=== PATIENT | female | born 1975 | race Caucasian/White ===

== ENCOUNTER 2020-04-26 17:21 | Outpatient (CLI) | payer OTHER, SELFPAY | END 2020-04-26 17:22 | disposition home or self-care (01) | LOC: ANHCOVIDVC 17:21 | PROVIDERS: PCP Emergency Medicine | DX: Z23 Encounter for immunization (principal) | CPT/HCPCS: 0001A; 91300 ==

== ENCOUNTER 2020-05-17 17:23 | Outpatient (CLI) | payer OTHER, SELFPAY | END 2020-05-17 17:24 | disposition home or self-care (01) | LOC: ANHCOVIDVC 17:23 | PROVIDERS: PCP Emergency Medicine | DX: Z23 Encounter for immunization (principal) | CPT/HCPCS: 0002A; 91300 ==

== ENCOUNTER 2020-09-25 11:00 | Outpatient (CLI) | payer OTHER, SELFPAY | END 2020-09-25 11:01 | disposition home or self-care (01) | LOC: ANHAUDIO 11:01 | PROVIDERS: PCP Emergency Medicine; Visit Provider Otolaryngology | DX: H91.93 Unspecified hearing loss, bilateral (principal) | CPT/HCPCS: 92552; 92556; 92567 ==

== ENCOUNTER 2020-10-24 16:15 | Emergency (ER) | payer OTHER, SELFPAY ==
[2020-10-24 16:22] VITALS: BP 125/83; PULSE 78; RESP 16; TEMP 36; O2SAT 100
--- NOTE | 2020-10-24 17:38 | ED.SKABFB ---
HPI - Skin/Abscess/Foreign Bdy General Chief complaint: Skin/Abscess/Foreign Body Stated complaint: Shingles in mourth Source: patient and RN notes reviewed Limitations: no limitations History of Present Illness HPI narrative: The patient with a history of RA on several meds, presents with skin eruption. Patient states she was recently treated with a 5-day course of acyclovir for shingles eruption on her back. She then developed aphthous ulceration around her mouth ; she discussed this with her fruit dryer who then stopped her MTX and other immunosuppressants. Symptoms are mild, worse with eating. No fever, vomiting/diarrhea, reflux; but she does indicate she has a headache from the eruption. Related Data Home Medications Medication Instructions Recorded Confirmed calcium carbonate-vitamin D3 600 See Rx Instructions PO DAILY cap 03/19/20 09/17/20 mg calcium-200 unit capsule certolizumab pegol 400 mg SUBCUT .COMPLEX ea 03/19/20 09/17/20 folic acid 1 mg tablet 2 mg PO DAILY tablet 03/19/20 09/17/20 omega 3,6,9 combination no.7 92 mg See Rx Instructions .ROUTE .COMPLEX 03/19/20 09/17/20 (43 mg-22 [id number]) chew tablet omeprazole 40 mg capsule,delayed 80 mg PO DAILY cap 03/19/20 09/17/20 release meclizine 25 mg tablet 25 mg PO BID 07/29/20 09/17/20 Allergies Allergy/AdvReac Type Severity Reaction Status Date / Time tocilizumab Allergy Severe UNKNOWN Verified 10/15/20 14:20 methocarbamol Allergy Unknown RASH Verified 10/15/20 14:20 Sulfa (Sulfonamide Allergy Unknown UNKNOWN Verified 10/15/20 14:20 Antibiotics) BEE STINGS Allergy Severe Anaphylaxis Uncoded 07/29/20 15:04 OXYCODONE HCL Allergy Mild dizziness Uncoded 07/29/20 15:04 strawberries Allergy Unknown Rash Uncoded 07/29/20 15:04 Review of Systems Review of Systems: General/Constitutional: No weight loss,fever Eyes: N0: Redness,discharge Ears/Nose/Throat: No: Epistaxis,ear discharge Respiratory: Denies: Hemoptysis Gastrointestinal: No Vomiting, Bleeding-rectal Skin: No Lumps, REPORTS eruption Neurologic: No Focal Weakness,Sz Hematologic: Denies: Petechiae/Purpura Psychiatric: No: Suicida ideationl All Other Systems: Reviewed and Negative [facility] Past Medical History Medical History delivery delivered (~2002) Chicken pox Miscarriage Pneumonia Surgical History Surgical History History of hysterectomy (~2014) History of spinal fusion (~2019) c4-5 AND c5-6 History of tonsillectomy and adenoidectomy (~1979) Family History Family History Father Pacemaker Hypertension Heart disease Mother Pacemaker Rheumatoid arthritis Depression Heart disease Sibling Depression Grandparent Heart disease Grandparent Heart disease Social History Social History Social History: Patient drinks caffeine once daily Smoking status: Never smoker Alcohol intake: never Substance use: never Substance use type: does not use Additional occupation/education comments: [employer] Gender identity (if verbalized by the patient): Female Sexual Orientation (if Verbalized by the Patient): Straight or Heterosexual Comments At time of signature, agree with nursing past medical, surgical, social and family history. There is no relevant family history pertinent to the presenting complaint Exam Narrative: General Appearance: Well appearing, Well nourished EYE: PERRLA, EOMI, Conjunctiva clear Ears: External ear normal, Auditory canal normal Nose: Normal nose Mouth/Throat: Normal appearing , scattered aphthous ulcerations Neck: Supple, No adenopathy Respiratory: Airway patent, No respiratory distress, Clear to auscultation Musculoskeletal: Full ROM, Non tender, Normal strength Skin:
== END 2020-10-24 17:47 | disposition home or self-care (01) ==
PROVIDERS: Emergency Provider Emergency Medicine; PCP Emergency Medicine
DX: K12.0 Recurrent oral aphthae (principal); M06.9 Rheumatoid arthritis, unspecified
CPT/HCPCS: 99213; G0463

== ENCOUNTER 2021-01-03 01:40 | Day surgery (SDC) | payer OTHER, SELFPAY ==
[2020-12-25 15:09] VITALS: BMI 23.5
[2021-01-03 12:16] VITALS: BP 132/75; PULSE 70; RESP 20; TEMP 36.2; O2SAT 100; BMI 23.9
--- NOTE | 2021-01-03 12:19 | WPDANESEPPF ---
Anes - Initial Pre Proc Eval Procedure: Operation Date: 01/03/21 13:00 Proposed Procedures p Esophagogastroduodenoscopy - Guicho Pineda MD Date/Time: 01/03/21 12:19 Surgeon: Guicho Pineda MD Pre Op Diagnosis: GERD Patient Data Age: 45 Gender: F Height: 1.68 m Weight: 67.3 kg Last Vital Signs Temp 97.2 F L 01/03/21 12:16 Pulse 70 01/03/21 12:16 Resp 20 01/03/21 12:16 BP 132/75 01/03/21 12:16 Pulse Ox 100 01/03/21 12:16 Allergies Allergy/AdvReac Type Severity Reaction Status Date / Time tocilizumab Allergy Severe Rash Verified 01/03/21 12:14 methocarbamol Allergy Intermediate RASH Verified 01/03/21 12:14 Sulfa (Sulfonamide Allergy Intermediate Rash Verified 01/03/21 12:14 Antibiotics) BEE STINGS Allergy Severe Anaphylaxis Uncoded 01/03/21 12:14 strawberries Allergy Intermediate Rash Uncoded 01/03/21 12:14 OXYCODONE HCL Allergy Mild dizziness Uncoded 01/03/21 12:14 Home Medications Medication Instructions Recorded Confirmed Type certolizumab pegol 800 mg SUBCUT ea 03/19/20 12/30/20 History folic acid 1 mg tablet 2 mg PO DAILY tablet 03/19/20 12/30/20 History meclizine 25 mg tablet 25 mg PO BID PRN 07/29/20 12/30/20 History sucralfate 1 gram tablet 1 g PO Q6H #40 tablet 11/27/20 12/25/20 Rx gabapentin 300 mg capsule 300 mg PO TID #90 cap 12/06/20 12/30/20 Rx Adult Probiotic 2 cap PO DAILY 12/25/20 12/30/20 History Caltrate with Vitamin D3 2 cap PO DAILY 12/25/20 12/30/20 History calcium carbonate [Calcium 500] 500 mg PO DAILY 12/25/20 12/30/20 History cholecalciferol (vitamin D3) 100 mcg PO DAILY 12/25/20 12/30/20 History [Vitamin D3] methotrexate sodium 10 mg PO WEEKLY 12/25/20 12/30/20 History omega-3 fatty acids [[place] 3 Fish 1,800 mg PO DAILY 12/25/20 12/30/20 History Oil Concentrate] omeprazole 80 mg PO DAILY 12/25/20 12/30/20 History sertraline 100 mg PO DAILY 12/25/20 12/30/20 History Patient hx anesthesia problems: none Family hx anesthesia problems: none Results Review: All pre-operative results and documents have been reviewed as part of the pre-operative evaluation. PMFSH Past Medical History Medical History delivery delivered (~2002) Chicken pox Miscarriage Pneumonia Surgical History Surgical History History of hysterectomy (~2014) History of spinal fusion (~2019) c4-5 AND c5-6 History of tonsillectomy and adenoidectomy (~1979) Family History Family History Father Pacemaker Hypertension Heart disease Mother Pacemaker Rheumatoid arthritis Depression Heart disease Sibling Depression Grandparent Heart disease Grandparent Heart disease Social History Social History Social History: Patient drinks caffeine once daily Smoking status: Never smoker Alcohol intake: former Substance use: never Substance use type: does not use Living arrangements: with family Additional occupation/education comments: [employer] Gender identity (if verbalized by the patient): Female Sexual Orientation (if Verbalized by the Patient): Straight or Heterosexual Spiritual care concerns: No Anes - Eval Final PreProcedure Day of Procedure 01/03/21 12:19 Patient weight: normal Heart: regular rate and rhythm Lungs: clear to auscultation Airway: Mallampati scale class II Neurological: alert and oriented Last oral intake: >/= 8 hours ASA classification: II Emergent: no Anesthetic plan: proceed Anesthesia type and monitoring: general GIVS and standard monitoring Results Review: All pre-operative results and documents have been reviewed as part of the pre-operative evaluation. Informed Consent: The patient's anesthetic plan and its attendant risks and benefits were disc
[2021-01-03] MEDS: LACTATED RINGERS 1,000 ML 150 ML IV CONT (12:30)
--- NOTE | 2021-01-03 13:25 | PM.HPGS ---
History of Present Illness History of Present Illness Consent: Risks, benefits, and alternatives have been discussed and questions answered. Patient agrees to proceed with procedure. Chief complaint: GERD Narrative: Sofia Lima is a 45 year old female with correction GERD on omeprazole bid and recently carafate but still breakthrough symptoms, never had egd Review of Systems Constitutional: Constitutional: Denies headache(s) and Denies weakness Eyes: Eyes: Denies blurry vision ENT: Reports Normal hearing present, Denies headache(s) and Denies neck pain Cardiovascular: Cardiovascular: Denies chest pain and Denies dyspnea Respiratory: Respiratory: Denies dyspnea Gastrointestinal: Gastrointestinal: Reports no additional gastrointestinal complaints Genitourinary: Genitourinary: Denies dysuria Musculoskeletal: Musculoskeletal: Denies neck pain Integumentary/Breasts: Skin/Breast: Denies dry skin Neurologic: Reports Normal hearing present, Denies headache(s) and Denies weakness Psychiatric: Psychiatric: Denies anxiety Endocrine: Endocrine: Denies change in body appearance Hematologic/Lymphatic: Hematologic/Lymphatic: Denies easy bleeding Allergic/Immunologic: Allergic/Immunologic: Denies urticaria PMFSH Past Medical History Medical History delivery delivered (~2002) Chicken pox Miscarriage Pneumonia Surgical History Surgical History History of hysterectomy (~2014) History of spinal fusion (~2019) c4-5 AND c5-6 History of tonsillectomy and adenoidectomy (~1979) Family History Family History Father Pacemaker Hypertension Heart disease Mother Pacemaker Rheumatoid arthritis Depression Heart disease Sibling Depression Grandparent Heart disease Grandparent Heart disease Social History Social History Social History: Patient drinks caffeine once daily Smoking status: Never smoker Alcohol intake: former Substance use: never Substance use type: does not use Living arrangements: with family Additional occupation/education comments: [employer] Gender identity (if verbalized by the patient): Female Sexual Orientation (if Verbalized by the Patient): Straight or Heterosexual Spiritual care concerns: No Meds Home Medications and Allergies Home Medications Medication Instructions Recorded Confirmed Type certolizumab pegol 800 mg SUBCUT ea 03/19/20 12/30/20 History folic acid 1 mg tablet 2 mg PO DAILY tablet 03/19/20 12/30/20 History meclizine 25 mg tablet 25 mg PO BID PRN 07/29/20 12/30/20 History sucralfate 1 gram tablet 1 g PO Q6H #40 tablet 11/27/20 12/25/20 Rx gabapentin 300 mg capsule 300 mg PO TID #90 cap 12/06/20 12/30/20 Rx Adult Probiotic 2 cap PO DAILY 12/25/20 12/30/20 History Caltrate with Vitamin D3 2 cap PO DAILY 12/25/20 12/30/20 History calcium carbonate [Calcium 500] 500 mg PO DAILY 12/25/20 12/30/20 History cholecalciferol (vitamin D3) 100 mcg PO DAILY 12/25/20 12/30/20 History [Vitamin D3] methotrexate sodium 10 mg PO WEEKLY 12/25/20 12/30/20 History omega-3 fatty acids [[place] 3 Fish 1,800 mg PO DAILY 12/25/20 12/30/20 History Oil Concentrate] omeprazole 80 mg PO DAILY 12/25/20 12/30/20 History sertraline 100 mg PO DAILY 12/25/20 12/30/20 History methotrexate sodium 10 mg PO WEEKLY 01/03/21 01/03/21 History Allergies Allergy/AdvReac Type Severity Reaction Status Date / Time tocilizumab Allergy Severe Rash Verified 01/03/21 12:14 methocarbamol Allergy Intermediate RASH Verified 01/03/21 12:14 Sulfa (Sulfonamide Allergy Intermediate Rash Verified 01/03/21 12:14 Antibiotics) BEE STINGS Allergy Severe Anaphylaxis Uncoded 01/03/21 12:14 strawberries Allergy Intermediate Rash Uncoded 01/03/21 12
[2021-01-03 13:35] VITALS: BP 98/89; PULSE 57; RESP 15; O2SAT 98
[2021-01-03 13:45] VITALS: BP 100/62; PULSE 61; RESP 18; O2SAT 100
[2021-01-03 13:55] VITALS: BP 100/67; PULSE 57; RESP 19; O2SAT 100
[2021-01-03 14:05] VITALS: BP 107/78; PULSE 63; RESP 18; O2SAT 100
== END 2021-01-03 14:15 | disposition home or self-care (01) ==
PROVIDERS: PCP Emergency Medicine; Visit Provider Internal Medicine Gastroenterology
PROC: 0DJ08ZZ Inspection of Upper Intestinal Tract, Via Natural or Artificial Opening Endoscopic (ICD-10-PCS; CPT 43235; principal; 2021-01-03 13:00)
DX: K21.9 Gastro-esophageal reflux disease without esophagitis (principal); R07.89 Other chest pain; K44.9 Diaphragmatic hernia without obstruction or gangrene; K29.60 Other gastritis without bleeding
CPT/HCPCS: 43239; 88305; J2704; J7120

== ENCOUNTER → 2021-02-24 16:05 | Outpatient (CLI) | payer OTHER, SELFPAY ==
--- NOTE | ~2021-02-24 | XR_ITS ---
EXAMINATION: XR chest 2V EXAM DATE: 02/24/2021 16:21 INDICATION: R05.9 - Cough, unspecified. TECHNIQUE: Frontal and lateral projections of the chest obtained and reviewed. There is prior study from 2004 for comparison. FINDINGS: The lungs are clear. There are no pleural effusions. The cardiomediastinal silhouette is within normal limits. There is no pneumothorax suspected. The bones and soft tissues are unremarkab le. IMPRESSION: No acute cardiopulmonary findings. Reviewed, dictated and finalized at location A. [employer]
== END ==
PROVIDERS: PCP Emergency Medicine; Visit Provider Emergency Medicine
DX: R05.9 Cough, unspecified (principal)
CPT/HCPCS: 71046

== ENCOUNTER → 2021-02-26 02:25 | Outpatient (CLI) | payer OTHER, SELFPAY ==
[2021-02-27 01:23] LABS: SARS-CoV-2 RNA PCR Negative
== END ==
PROVIDERS: PCP Emergency Medicine; Visit Provider Emergency Medicine
DX: R05.9 Cough, unspecified (principal); R11.0 Nausea; R07.89 Other chest pain; R51.9 Headache, unspecified; Z20.822 Contact with and (suspected) exposure to COVID-19
CPT/HCPCS: C9803; U0003; U0005

== ENCOUNTER 2022-10-04 14:49 | Emergency (ER) | payer OTHER, SELFPAY ==
--- NOTE | ~2022-10-04 | XR_ITS ---
EXAMINATION: XR chest 2V DATE: 10/04/2022 15:15 INDICATION: Fatigue and shortness of breath TECHNIQUE: PA and lateral views of the chest are obtained. COMPARISON: 02/24/2021 FINDINGS: The lungs are free of acute opacities. No pleural effusion or pneumothorax. The cardiomedia stinal silhouette is normal. There is mild thoracic spondylosis. Bilateral breast implants are noted. There are partially imaged changes of anterior fusion procedure in the lower cervical spine. IMPRESSION: 1. No acute cardiopulmonary abnormality. Reviewed, dictated and finalized at location F.
[2022-10-04 14:57] VITALS: BP 124/83; PULSE 97; RESP 16; TEMP 37.3; O2SAT 98
[2022-10-04 14:59] VITALS: BP 124/83; PULSE 97; RESP 16; TEMP 37.3; O2SAT 98
--- NOTE | 2022-10-04 15:09 | ED.URI ---
HPI - URI/Sore Throat General Chief Complaint: Upper Respiratory Infection Stated Complaint: Sinus Time Seen by Provider: 10/04/22 15:05 Source: patient Mode of arrival: ambulatory Limitations: no limitations History of Present Illness HPI Narrative: Sofia is a 47-year-old female patient presenting to the clinic today with complaints status post COVID. She reports that she tested positive for COVID A days ago. Did a at home test yesterday and was negative. Still having some shortness of breath, irritability, nonproductive cough, fatigue, and fevers. She is concerned that she may have pneumonia. MD elicited complaint: fever, cough, nasal congestion and other (Shortness of breath) Related Data Home Medications Medication Instructions Recorded Confirmed certolizumab pegol 400 mg/2 mL 800 mg subcut 03/19/20 12/30/20 (200 mg/mL x2) subcutaneous syringe kit (Cimzia) folic acid 1 mg tablet 2 mg PO DAILY 03/19/20 12/30/20 Adult Probiotic 2 cap PO DAILY 12/25/20 12/30/20 Caltrate with Vitamin D3 2 cap PO DAILY 12/25/20 12/30/20 calcium carbonate 500 mg calcium 500 mg PO DAILY 12/25/20 12/30/20 (1,250 mg) tablet (Calcium 500) cholecalciferol (vitamin D3) 50 100 mcg PO DAILY 12/25/20 12/30/20 mcg (2,000 unit) capsule (Vitamin D3) omega-3 fatty acids 1,800 mg PO DAILY 12/25/20 12/30/20 omeprazole 20 mg capsule,delayed 80 mg PO DAILY 12/25/20 12/30/20 release methotrexate sodium 2.5 mg tablet 10 mg PO WEEKLY 01/03/21 01/03/21 Allergies Allergy/AdvReac Type Severity Reaction Status Date / Time tocilizumab Allergy Severe Rash Verified 10/04/22 14:57 methocarbamol Allergy Intermediate RASH Verified 10/04/22 14:57 Sulfa (Sulfonamide Allergy Intermediate Rash Verified 10/04/22 14:57 Antibiotics) BEE STINGS Allergy Severe Anaphylaxis Uncoded 10/04/22 14:57 strawberries Allergy Intermediate Rash Uncoded 10/04/22 14:57 OXYCODONE HCL Allergy Mild dizziness Uncoded 10/04/22 14:57 Review of Systems Review of Systems: Pertinent positives per HPI. Patient denies any fever, chills, rash, headache, visual changes, dizziness, cough, shortness of breath, chest pain, palpitations, nausea, vomiting, diarrhea, constipation, abdominal pain, or any urinary issues. [facility] Past Medical History Medical History delivery delivered (~2002) Chicken pox Miscarriage Pneumonia Surgical History Surgical History History of hysterectomy (~2014) History of spinal fusion (~2019) c4-5 AND c5-6 History of tonsillectomy and adenoidectomy (~1979) Family History Family History Father Pacemaker Hypertension Heart disease Mother Pacemaker Rheumatoid arthritis Depression Heart disease Sibling Depression Grandparent Heart disease Grandparent Heart disease Social History Social History Social History: Patient drinks caffeine once daily Smoking status: Never smoker Alcohol intake: former Substance use: never Substance use type: does not use Living arrangements: with family Occupation/Education: occupation Additional occupation/education comments: [employer] Gender identity (if verbalized by the patient): Female Sexual Orientation (if Verbalized by the Patient): Straight or Heterosexual Spiritual care concerns: No Comments At the time of my signature, I reviewed and agree with the nursing past medical, surgical, social, and family history. There is no relevant family history pertinent to the patient complaint. Exam Narrative: General: Well-developed, well nourished, in no apparent distress Head: Normocephalic, atraumatic Eyes: Pupils equally round and reactive to light bilaterally, EOM intact, sclera and conjunctive clear, no di
== END 2022-10-04 15:37 | disposition home or self-care (01) ==
PROVIDERS: Emergency Provider Nurse Practitioner Family; PCP Emergency Medicine
DX: U07.1 COVID-19 (principal); R06.02 Shortness of breath
CPT/HCPCS: 71046; 99213; G0463

== ENCOUNTER 2024-04-27 14:20 | Outpatient (CLI) | payer OTHER, SELFPAY ==
--- NOTE | ~2024-04-27 | CT_ITS ---
CT ANGIOGRAM NECK AND HEAD History: Slurred speech. Technique: Axial noncontrast imaging of the brain was performed. Serial spiral axial images through t he head and neck were than obtained during arterial phase IV injection of 100 cc of Omnipaque 350. 3- D postprocessing and MIP images were then reconstructed on the remote workstation. Dose reduction belinda hnique was used on this scan by utilizing automated exposure control and iterative reconstruction belinda hnique. The dose-length product (DLP) was 1498.30 mGy-cm. CTA neck findings: Bilateral vertebral arteries are patent. Bilateral common carotid, internal carot id, external carotid arteries are patent. No large vessel occlusion or stenosis. No aneurysm. The pro ximal right internal carotid artery demonstrates 0% stenosis relative to the normal distal artery lum en diameter. The proximal left internal carotid artery demonstrates 0% stenosis relative to the elle l distal artery lumen diameter. CTA head findings: Distal vertebral arteries, basilar artery, and posterior cerebral arteries are pat ent. Distal internal carotid arteries, middle cerebral arteries, and anterior cerebral arteries are p atent. No large vessel occlusion or stenosis. No aneurysm. Axial noncontrast imaging of the brain is unremarkable. No acute infarct, intracranial hemorrhage or mass lesion seen. No mass effect or midline shift. Meraz-white differentiation preserved. Ventricles a nd subarachnoid spaces are unremarkable. Paranasal sinuses and mastoid air cells are clear. Calvarium intact. Impression: No significant abnormality. Reviewed, dictated and finalized at [facility]. Impression: No significant abnormality.
--- OUTSIDE RECORDS SUMMARY | 2024-04-27 16:11 | XMS_ITS | Referral Summary ---
Author Organization [facility] Address [address] [place] [address] Care Team Providers Care Concession Attendant Name Role Phone Orquidea Fraser MD Unavailable [phone] Luther Terrazas MD Primary Care Provide r Encounters Date Type Department Care Team Description 04/05/2024 Telephone [facility] Rheumatology at [address] [phone] Lashaun Blair MD Scheduling Appointments 02/11/2024 Telephone [facility] Rheumatology at [address] [place] [phone] Lashaun Blair MD Med Refill 02/03/2024 Telephone [facility] Rheumatology at [address] [phone] Lashaun Blair MD FMLA 02/01/2024 Telephone [facility] Rheumatology at [address] [place] [phone] Lashaun Blair MD 01/28/2024 Telephone [facility] Rheumatology at [facility] [address] [facility] [address] [place] [address] Lashaun Blair MD [facility] 01/28/2024 Telephone [facility] Rheumatology at [place] [id number] [facility] [address] [place] [address] Skylar Grimes MA from Last 3 Months Allergies Active Allergy Reactions Criticality Noted Date Comments Methocarbamol Urticaria Medium 06/10/2017 Sulfa (Sulfonamide Antibiotics) Rash Medium 06/21/2017 Tocilizumab Hives,Anaphylaxis,Ur michael jennie High 05/18/2018 Medications ibuprofen (ADVIL,MOTRIN) 600 mg tablet Take one by mouth three times per day as needed 0 0 007 Active calcium carbonate (CALCIUM 600) 1,500 mg (600 mg of elemental calcium) tablet take 2 tablets daily 0 012 Active multivitamin tablet tablet take 1 tablet by oral route every day with food 0 012 Active sctem-beygb-5-dha -epa-lipids (MEGAKRILL) 075-41-41-50 mg capsule take1 capsule every day 0 0 015 Active meclizine (ANTIVERT) 25 mg tablet TAKE 1 TABLET BY MOUTH THREE TIMES DAILY NEEDED FOR DIZZINESS 0 019 Active ALPRAZolam (XANAX) 0.5 mg tablet Take 1 tablet (0.5 mg total) by mouth as needed Active sertraline (ZOLOFT) 100 mg tablet Take 1 tablet by mouth once daily 90 tablet 2 020 Active omeprazole (PriLOSEC) 20 mg capsule Take 4 capsules (80 mg total) by mouth daily Active sertraline (ZOLOFT) 50 mg tablet TAKE 1 TABLET BY MOUTH ONCE DAILY IN COMBINATION WITH THE 100MG TABLET TO EQUAL 150MG DAILY 022 Active ondansetron ODT (ZOFRAN-ODT) 4 mg disintegrating tablet Take 1 tablet (4 mg total) by mouth as needed 023 Active predniSONE (DELTASONE) 20 mg tablet TAKE 2 TABLETS BY MOUTH ONCE DAILY FOR 5 DAYS 023 Active cycloSPORINE (RESTASIS) 0.05 % ophthalmic emulsion Administer 1 drop into both eyes every 12 (twelve) hours 0.4 mL 2 024 Active Cimzia 400 mg/2 mL (200 mg/mL x 2) syringe kit Inject 2 syringes (400mg) subcutaneously every 4 weeks 6 each 10 Active methylPREDNISolon e (Medrol, Jensen,) 4 mg Dosepack follow package directions 1 packet Active methotrexate 2.5 mg tablet TAKE 6 TABLETS BY MOUTH ONCE A WEEK 24 tablet Active folic acid (FOLVITE) 1 mg tablet Take 2 tablets by mouth once daily 60 tablet 025 Active folic acid (FOLVITE) 1 mg tablet Take 2 tablets by mouth once daily 60 tablet 11 024 2024 Discontinued Active Problems Problem Noted Date Diagnosed Date Nasal ulcer 02/17/2023 Assessment & Plan (02/17/2023 12:51 PM ELECTRIC METER READER): Not responsive to conservative measures. Will trial short course of bactroban cream. Change to nasal saline gel topical too. Increase folic acid to 2 mg daily in case this is mucositis related issue from MTX. Will update lupus labs also. Follow up if not improving. Encounter for long-term (cur rent) use of high-risk medication 07/09/2021 Assessment & Plan (02/17/2023 12:50 PM ELECTRIC METER READER): Long-term use of high-risk medication requiring regular monitoring. Labs ordered, no s/s of med tox. Encouraged to work with PCP to make sure all recommended cancer screens and vaccinations are complete. Avoid live-vaccines unless reviewed with phd intern first. Assessment & Plan (12/17/2022 9:20 AM CDT): Long-term use of high-risk medication requiring regular monitoring. Labs ordered, no s/s of med tox or infection. Encouraged to work with PCP to make sure all recommended cancer screens and vaccinations are complete. Avoid live-vaccines unless reviewed with phd intern first. Assessment & Plan (07/09/2021 9:37 AM CDT): Long-term use of high-risk medication requiring regular monitoring. Labs ordered, no s/s of med tox or infection. Encouraged to work with PCP to make sure all recommended cancer screens and vaccinations are complete. Avoid live-vaccines unless reviewed with phd intern first. Degenerative disc disease, cervical 01/08/2020 S/P cervical spinal fusion 01/08/2020 Facet arthropathy, cervical 11/15/2019 Cervical myelopathy 11/15/2019 Rheumatoid arthritis involvi ng multiple sites with positive rheumatoid factor 07/01/2013 Overview (05/22/2016): RHEUMATOID ARTHRITIS Assessment & Plan (02/17/2023 12:50 PM ELECTRIC METER READER): Joint symptoms seem stable on MTX and cimzia. Continue same. Labs today. Follow up in [address] Blair. Assessment & Plan (12/17/2022 9:21 AM CDT): Stable on current therapy. Continue same. Updated standing lab orders. Will go to [facility]. Follow up in 4-6 months and prn. Assessment & Plan (07/09/2021 9:57 AM CDT): Previously stable on cimzia and MTX, now with recent flare in joint pain symptoms that responded well to medrol dose pack, Will extend prednisone to 5 mg daily for 2 weeks. If not continuously improved after that we can discuss next treatment option. Immunizations Immunization Administration Dates Next Due Hep A, Unspecified 04/06/2022 Influenza, Quadrivalent, Spl it, Intramuscular 11/18/2010 Influenza, Quadrivalent, Spl it, Preservative Free, Intramuscular 12/16/2022,11/29/2019,01/03/2019,12/22 Influenza, Split 11/18/2010 Influenza, Trivalent, IM (MDV) 12/19/2014,2013 Influenza, Unspecified 12/21/2016 Pfizer SARS-CoV-2 Monovalent Vaccination (12+ Yrs) PURPLE 05/17/2020,04/26/2020 Pneumococcal Polysaccharide PPV23 02/18/2004 Social History Tobacco Use Types Packs/Day Years Used Date Smoking Tobacco: Never Smokeless Tobacco: Never Alcohol Use Standard Drinks/Week Comments No 0 (1 standard drink = 0.6 oz pur e alcohol) AUDIT-C Answer Date Recorded Q1: How often do you have a drink containing alc ohol? Never 07/09/2021 Average Number of Drinks Not on file 022 Q3: How often do you have si x or more drinks on one occasion? Never 07/09/2021 PHQ-2 Answer Date Recorded PHQ-2 Total Score (If total score is 3 or more points, staff should administer the PHQ-9) 0 04/21/2021 Personal Safety Answer Date Recorded Getting School Help Needed Not on file 01/28 Comments Unknown Sex and Gender Information Value Date Recorded Sex Assigned at Not on file Legal Sex Female 2:48 AM ELECTRIC METER READER Gender Identity Female 06/20/2019 10:49 AM CDT Sexual Orientation Not on file Last Filed Vital Signs Vital Sign Reading Time Taken Comments Blood Pressure 110/84 06/23/2023 12:59 PM CDT Pulse 68 06/23/2023 12:59 PM CDT Temperature 36.7 C (98.1 F) 06/23/2023 12:59 PM CDT Respiratory Rate 16 06/23/2023 12:5 9 PM CDT Oxygen Saturation 97% 06/23/2023 12: 59 PM CDT Inhaled Oxygen Concentration - - Weight 60.2 kg (132 lb 11.2 oz) 024 12:59 PM CDT Height 165.1 cm (5' 5 ) 06/23/2023 12:5 9 PM CDT Body Mass Index 22.08 06/23/2023 12:59 PM CDT Plan of Treatment Not on file Procedures Procedure Name Priority Date/Time Associated Diagnosis Comments HEPATITIS PANEL, ACUTE Routine 10/27/2016 10:26 AM CDT Rheumatoid arthritis involving multiple sites with positive rheumatoid factor (HCC) from Last 3 Months or Most Recently Relevant to Health Maintenance Results * Hepatitis panel, acute (10/27/2016 10:26 AM CDT) Hep A IgM Nonreactive Nonreactive [facility] Comment: Interpretive Data If test is reported as GRAYZONE, new sample should be drawn in two weeks for testing. Current interpretive data was last revised on 2016. Hep B core IgM Nonreactive Nonreactive [facility] Comment: Interpretive Data If test is reported as GRAYZONE, new sample should be drawn for testing. Current interpretive data was last revised on 2016. Hep C Ab Nonreactive Nonreactive [facility] Comment: Interpretive Data Positive and greyzone results should be confirmed by a molecular method. If positive or greyzone, a second separately collected sample should be submitted for Hepatitis C Virus RNA. Detection and Quantitation by Real-Time Reverse Antisqueak Worker-PCR.Current Interpretive data was last revised on 2016. HepBsAg Nonreactive Nonreactive [facility] Blood specimen (specimen) 10/27/2016 10:26 AM CDT 10/27/2016 11:37 AM CDT Orquidea Fraser MD LAB MICROBIOLOGY - GENERAL O RDERABLES Edited Result - Final [facility] [place] [address] from Last 3 Months or Most Recently Relevant to Health Maintenance Insurance [facility] HMO/PPO Address: [address] [address] Care Teams Concession Attendant Relationship Specialty Start Date End Date Luther Terrazas MD [address] [place] [address] PCP - General Emergency Medicine 04/21/21 Orquidea Fraser MD [address] [facility] [address] [place] [address] Rheumatology 10/20/16
--- OUTSIDE RECORDS SUMMARY | 2024-04-27 16:11 | XMS_ITS | Encounter Summary ---
Author Organization [facility] Address [address] [place] [address] Care Team Providers Care Tinning Machine Set Up Operator Name Role Phone Luther Terrazas MD Primary Care Provider [phone] Lelia Blair MD Unavailable [phone] Encounter Details Date Type Department Care Team (Late st Contact Info) Description 03/08/2024 Richard Pauer - 3Pt Message Enc [facility] Medical Group Multispecialty Care - [facility] [address] [facility], [address] [place] [phone] Michael Dukes MD [address] [place] [address] To Tammi Social History Tobacco Use Types Packs/Day Years Used Date Smoking Tobacco: Never Smokeless Tobacco: Never Alcohol Use Standard Drinks/Week Comments Not Currently 0 (1 standard drink = 0.6 oz pur e alcohol) PHQ-2 Answer Date Recorded Patient Health Questionnaire-2 Score 0 08/12/2023 Comments No Sex and Gender Information Value Date Recorded Sex Assigned at Female 03/07/2024 8:32 AM ACIDIZER HELPER Legal Sex Female 5:13 PM CDT Gender Identity Not on file Sexual Orientation Not on file documented as of this encounter Functional Status * RETIRED Are you deaf or do you have serious difficulty hearing Answer Date of Assessment Author Status Yes 01/08/2020 10:09 PM ACIDIZER HELPER Acti ve * RETIRED Are you blind or do you have serious difficulty seeing, even when wearing glasses? Answer Date of Assessment Author Status No 01/08/2020 10:09 PM ACIDIZER HELPER Acti ve * Do you have serious difficulty walking or climbing stairs? Answer Date of Assessment Author Status No 01/08/2020 10:09 PM Tere Brooke RN Active * Do you have difficulty dressing or bathing? Answer Date of Assessment Author Status No 01/08/2020 10:09 PM Tere Brooke RN Active * Because of a physical, mental, or emotional condition, do you have difficulty doing errands alone such as visiting a doctor's office or shopping? Answer Date of Assessment Author Status No 01/08/2020 10:09 PM Tere Brooke RN Active documented as of this encounter Mental Status * Because of a physical, mental, or emotional condition, do you have serious difficulty concentrating, remembering, or making decisions? Answer Entry Date Author Status No 01/08/2020 10:09 PM Tere Brooke RN Active documented in this encounter Progress Notes * Amanda Emmanuel MA - 03/08/2024 10:22 AM CST Forwarding to Angela IZER HELPER documented in this encounter Plan of Treatment Upcoming Encounters Date Type Department Care Team (Late st Contact Info) Description 05/09/2024 3:40 PM CDT Office Visit [facility] Medical Group Multispecialty Care - [facility] [address] [facility], [address] [place] [address] Deepali Antunez, MERON [address] [facility] [address] [place] [address] documented as of this encounter Visit Diagnoses Not on filedocumented in this encounter Care Teams Tinning Machine Set Up Operator Relationship Specialty Start Date End Date Luther Terrazas MD [address] [place] [address] PCP - General INTERNAL MEDICINE 04/25/20 Leila Blair MD [address] [facility] [address] [place] [address] RHEUMATOLOGY 03/07/24 documented as of this encounter
--- OUTSIDE RECORDS SUMMARY | 2024-04-27 16:11 | XMS_ITS | Encounter Summary ---
Author Organization [facility] Address [address] [place] [address] Care Team Providers Care Computer Networker Name Role Phone Orquidea Fraser MD Unavailable [phone] Luther Terrazas MD Primary Care Provide r Encounter Details Date Type Department Care Team (Late st Contact Info) Description 07/21/2023 Orders Only [facility] [address] [place] [address] Lashaun Blair MD [address] [facility] [address] [place] [address] Social History Tobacco Use Types Packs/Day Years [...] on file Legal Sex Female 2:48 AM STONE CHIMNEY MASON Gender Identity Female 06/20/2019 10:49 AM CDT Sexual Orientation Not on file documented as of this encounter Plan of Treatment Not on file documented as of this encounter Procedures Procedure Name Priority Date/Time Associated Diagnosis Comments SCAN - LABS 07/21/2023 9:54 PM CDT documented in this encounter Results * SCAN - LABS (07/21/2023 9:54 PM CDT) Lashaun Blair MD Final Result documented in this encounter Visit Diagnoses Not on filedocumented in this encounter Care Teams Computer Networker Relationship Specialty Start Date End Date Luther Terrazas MD [address] [facility] [place] [address] PCP - General Emergency Medicine 04/21/21 Orquidea Fraser MD [address] [facility] [address] [place] [address] Rheumatology 10/20/16 documented as of this encounter
--- OUTSIDE RECORDS SUMMARY | 2024-04-27 16:11 | XMS_ITS | Clinical Summary ---
Author Organization [facility] Address [address] [place] [address] Care Team Providers Care Child Psychometrist Name Role Phone Luther Terrazas MD Primary Care Provider Source Comments [facility],non-owned Affiliates and Associated Physician Practices is amultiple site organization consisting of ambulatory clinics and hospital sitesin [place], [place] and [place]. This disclosure is being madepursuant to the Care Everywhere program and may not contain all information available regarding this patient. Last updated 17.[facility] [employer] Allergies Active Allergy Reactions Criticality Noted Date Comments Methocarbamol Urticaria Medium 06/10/2017 Sulfa Drugs Rash Medium 06/21/2017 Tocilizumab Urticaria,Anaphylaxis High 05/18/2018 Medications * Be aware that medications may not be up to date on this document. Alwaysverify current medications with the patient. Medication Sig Dispensed Refills Start Date End Date Status certolizumab pegol (CIMZIA) injection Inject 200 mg subcutaneously every 28 days Active folic acid (FOLVITE) 1 MG tablet Take 1 mg by mouth once daily Active acyclovir (ZOVIRAX) 800 MG tablet Take 800 mg by mouth 3 times daily Active diazePAM (VALIUM) 5 MG tablet Take 5 mg by mouth 3 times daily as needed Active methotrexate 2.5 MG tablet Take 2.5 mg by mouth every 7 days Active sertraline (ZOLOFT) 100 MG tablet Take 100 mg by mouth once daily Active orphenadrine citrate CR 12hr (NORFLEX) 100 MG tablet Take 100 mg by mouth every 12 hours as needed for Muscle Spasms Active traMADol (ULTRAM) 50 MG tablet Take 50 mg by mouth every 6 hours as needed for Pain Active SUMAtriptan (IMITREX) 50 MG tablet Take 1 tab at the onset of migraine, may repeat x 1 dose after 2 hours if needed. Not to exceed more than 2 tabs in 24 hours. 10 tablet 3 05/15/2021 Active rizatriptan (MAXALT) 10 MG tablet Take 1 tab at the onset of migraine, may repeat x 1 dose after 2 hours if needed. Not to exceed more than 2 tabs in 24 hours. 10 tablet 3 05/29/2021 Active topiramate (Topamax) 25 MG tablet 1 TABLET TWICE DAILY 60 tablet 4 11/06/2021 Active Active Problems Problem Noted Date Diagnosed Date Rheumatoid arthritis 01/09/2020 Overview (12/26/2020): RHEUMATOID ARTHRITIS Cervical spine instability 01/08/2020 Degenerative disc disease, cervical 01/08/2020 S/P cervical spinal fusion 01/08/2020 Syrinx of spinal cord 11/15/2019 Immunizations Name Administration Dates Next Due INFLUENZA VACCINE, TRIV. (AF LURIA, FLUZONE TRIVALENT; 6MO+) (IIV3) 12/19/2014,11/14/2013 INFLUENZA VACCINE 12/21/2016 INFLUENZA VACCINE, QUADR. (A FLURIA, FLUZONE QUADRIVALENT; 6MO+) (IIV4) 11/18/2010 INFLUENZA VACCINE, QUADR. (F LUZONE; FLULAVAL; FLUARIX; AFLURIA QUADRIVALENT; 6MO+), 0.5 ML (IIV4) 11/29/2019,01/03/2019,12/22/2017 PNEUMOCOCCAL PPSV23 02/18/2004 Social History Tobacco Use Types Packs/Day Years Used Date Smoking Tobacco: Never Smokeless Tobacco: Never Alcohol Use Standard Drinks/Week Comments Never 0 (1 standard drink = 0.6 oz pur e alcohol) Sex and Gender Information Value Date Recorded Sex Assigned at Not on file Gender Identity Not on file Sexual Orientation Not on file Last Filed Vital Signs Vital Sign Reading Time Taken Comments Blood Pressure 108/74 12/26/2020 1:13 PM TAPE FOLDING MACHINE OPERATOR Pulse 82 12/26/2020 1:13 PM TAPE FOLDING MACHINE OPERATOR Temperature - - Respiratory Rate - - Oxygen Saturation - - Inhaled Oxygen Concentration - - Weight 65.8 kg (145 lb) 12/26/2020 1:13 PM TAPE FOLDING MACHINE OPERATOR Height 167.6 cm (5' 6 ) 12/26/2020 1:13 PM TAPE FOLDING MACHINE OPERATOR Body Mass Index 23.4 12/26/2020 1:13 PM TAPE FOLDING MACHINE OPERATOR Plan of Treatment Health Maintenance Due Date Last Done Comments COLOGUARD (AGES 45-75) - COLON CA SCREENING 1976 COLON MONITORING 1976 COLONOSCOPY - COLON CA SCREENING 1976 CT COLONOGRAPHY - COLON CA SCREENING 1976 Colorectal Cancer Screening 1976 FIT - COLON CA SCREENING 1976 FLEX SIG - COLON CA SCREENING 1976 LIPID TESTING 1976 MAMMOGRAM 1976 PAP SMEAR 1976 HIV SCREENING 02/11/1991 HEPATITIS C SCREENING 02/07/1994 DTAP/TDAP/TD VACCINES (1 - Tdap) 02/11/1995 HEPATITIS B VACCINE (1 of 3 - 19+ 3-dose series) 02/11/1995 COVID-19 VACCINE (3 - season) 2023 05/17/2020, 04/26/2020 INFLUENZA VACCINE (#1) 2023 , 01/03/2019, 12/22/2017, Additional history exists DEPRESSION SCREENING 02/16/2024 ZOSTER VACCINE (1 of 2) 02/11/2026 PNEUMOCOCCAL VACCINE Aged Out 02/18/2004 No long er eligible based on patient's age to complete this topic HIB VACCINE Aged Out No longer eligi ble based on patient's age to complete this topic HPV VACCINE Aged Out No longer eligi ble based on patient's age to complete this topic MENINGOCOCCAL (Group B) VACCINE SHARED DECISION-MAKING Aged Out No longer eligible based on patient's age to complete this topic MENINGOCOCCAL GROUPS A/C/Y/W VACCINE Aged Out No longer eligible based on patient's age to complete this topic Care Teams Child Psychometrist Relationship Specialty Start Date End Date Luther Terrazas MD [address] [place] [address] [address] [place] [address] [facility] - General 01/08/21
--- OUTSIDE RECORDS SUMMARY | 2024-04-27 16:11 | XMS_ITS | Clinical Summary ---
Author Organization [facility] Address [address] [place] [address] Care Team Providers Care Baker Helper Name Role Phone Orquidea Fraser MD Unavailable [phone] Luther Terrazas MD Primary Care Provide r Allergies Active Allergy Reactions Criticality Noted Date [...] every day with food 0 012 Active bkvkz-uhsbe-7-dha -epa-lipids (MEGAKRILL) [id number] mg capsule take1 capsule every day 0 [...] every 12 (twelve) hours 0.4 mL 2 Active Cimzia 400 mg/2 mL (200 mg/mL x 2) syringe kit Inject 2 syringes (400mg) subcutaneously every 4 weeks 6 each 10 024 Active methylPREDNISolon e (Medrol, Jensen,) 4 mg Dosepack follow package directions 1 packet Active methotrexate 2.5 mg tablet TAKE 6 TABLETS BY MOUTH ONCE A WEEK 24 tablet 024 Active folic acid (FOLVITE) 1 mg tablet Take 2 tablets by mouth once daily 60 tablet 025 Active folic acid (FOLVITE) 1 mg tablet Take 2 tablets by mouth once daily 60 tablet 11 024 2024 Discontinued Active Problems Problem Noted Date Diagnosed Date Nasal ulcer 02/17/2023 Assessment & Plan (02/17/2023 12:51 PM NET DEVELOPMENT MANAGER): Not responsive to conservative measures. Will trial short course of bactroban cream. Change to nasal saline gel topical too. Increase folic acid to 2 mg daily in case this is mucositis related issue from MTX. Will update lupus labs also. Follow up if not improving. Encounter for long-term (cur rent) use of high-risk medication 07/09/2021 Assessment & Plan (02/17/2023 12:50 PM NET DEVELOPMENT MANAGER): Long-term use of high-risk medication requiring regular monitoring. Labs ordered, no s/s of med tox. Encouraged to work with PCP to make sure all recommended cancer screens and vaccinations are complete. Avoid live-vaccines unless reviewed with big data solutions architect first. Assessment & Plan (12/17/2022 9:20 AM CDT): Long-term use of high-risk medication requiring regular monitoring. Labs ordered, no s/s of med tox or infection. Encouraged to work with PCP to make sure all recommended cancer screens and vaccinations are complete. Avoid live-vaccines unless reviewed with big data solutions architect first. Assessment & Plan (07/09/2021 9:37 AM CDT): Long-term use of high-risk medication requiring regular monitoring. Labs ordered, no s/s of med tox or infection. Encouraged to work with PCP to make sure all recommended cancer screens and vaccinations are complete. Avoid live-vaccines unless reviewed with big data solutions architect first. Degenerative disc disease, cervical 01/08/2020 S/P cervical spinal fusion 01/08/2020 Facet arthropathy, cervical 11/15/2019 Cervical myelopathy 11/15/2019 Rheumatoid arthritis involvi ng multiple sites with positive rheumatoid factor 07/01/2013 Overview (05/22/2016): RHEUMATOID ARTHRITIS Assessment & Plan (02/17/2023 12:50 PM NET DEVELOPMENT MANAGER): Joint symptoms seem stable on MTX and [...] that we can discuss next treatment option. Encounters Date Type Department Care Team Description 04/05/2024 Telephone [facility] Rheumatology at [address] [place] [address] Lashaun Blair MD Scheduling Appointments 02/11/2024 Telephone [facility] Rheumatology at [address] [place] [address] Lashaun Blair MD Med Refill 02/03/2024 Telephone [facility] Rheumatology at [address] [place] [address] Lashaun Blair MD [facility] 02/01/2024 Telephone [facility] Rheumatology at [address] [place] [address] Lashaun Blair MD 01/28/2024 Telephone [facility] Rheumatology at [address] [place] [address] Lashaun Blair MD [facility] 01/28/2024 Telephone [facility] Rheumatology at [address] [place] [address] Skylar Grimes MA from Last 3 Months Immunizations Immunization Administration Dates Next Due Hep A, Unspecified 04/06/2022 Influenza, Quadrivalent, Spl it, Intramuscular 11/18/2010 Influenza, Quadrivalent, Spl it, Preservative Free, Intramuscular 12/16/2022,11/29/2019,01/03/2019,12/22 Influenza, Split 11/18/2010 Influenza, Trivalent, IM (MDV) 12/19/2014,2013 Influenza, Unspecified 12/21/2016 Pfizer SARS-CoV-2 Monovalent Vaccination (12+ Yrs) PURPLE 05/17/2020,04/26/2020 Pneumococcal Polysaccharide PPV23 02/18/2004 Surgical History Surgery Date Site/Laterality Comments ANTERIOR CERVICAL DISCECTOMY W/ FUSION 01/08/2020 c45 and 56 Medical History Medical History Date Comments Migraines Rheumatoid arthritis (HCC) Family History Relation Name Status Comments Father Alive Mother Alive Social History Tobacco Use Types Packs/Day Years [...] on file Legal Sex Female 2:48 AM NET DEVELOPMENT MANAGER Gender Identity Female 06/20/2019 10:49 AM CDT Sexual Orientation Not on file Obstetrics History Last Filed Vital Signs Vital Sign Reading [...] 06/23/2023 12:59 PM CDT Plan of Treatment Health Maintenance Due Date Last Done Comments Breast Cancer Screening-Mammogram 1976 Cervical Cancer Screening 1976 Colon Cancer Screening-Colonoscopy 1976 DTaP/Tdap/Td Vaccine (1 - Tdap) 02/11/1987 Hepatitis B Screening 02/11/1994 Regular Well Visit/Exam 18-64 02/11/1994 Zoster Vaccine (1 of 2) 02/11/1995 Pneumococcal vaccine <65 (2 of 2 - PCV) 02/17/2005 02/18/2004 Covid-19 Vaccine (3 - Pfizer risk series) 06/14/2020 05/17/2020, 04/26/2020 Depression Screening 04/21/2022 04/21/2021, 03/16/2018, 03/30/2017 Influenza Vaccine (#1) 2023 3, 11/29/2019, 01/03/2019, Additional history exists Hepatitis C Screening Completed 10/27/2016 Procedures Procedure Name Priority Date/Time Associated Diagnosis Comments HEPATITIS PANEL, ACUTE Routine 10/27/2016 10:26 AM CDT Rheumatoid arthritis involving multiple sites with positive rheumatoid factor (HCC) from Last 3 Months or Most Recently Relevant to Health Maintenance Results * Hepatitis panel, acute (10/27/2016 10:26 AM CDT) Hep A IgM Nonreactive Nonreactive [facility] Comment: Interpretive Data If test is reported as GRAYZONE, new sample should be drawn in two weeks for testing. Current interpretive data was last revised on 2016. Hep B core IgM Nonreactive Nonreactive [facility] Comment: Interpretive Data If test is reported as GRAYZONE, new sample should be drawn for testing. Current interpretive data was last revised on 2016. Hep C Ab Nonreactive Nonreactive [facility] Comment: Interpretive Data Positive and greyzone results should be confirmed by a molecular method. If positive or greyzone, a second separately collected sample should be submitted for Hepatitis C Virus RNA. Detection and Quantitation by Real-Time Reverse Breast Buffer-PCR.Current Interpretive data was last revised on 2016. HepBsAg Nonreactive Nonreactive [facility] Blood specimen (specimen) 10/27/2016 10:26 AM CDT 10/27/2016 11:37 AM CDT us Orquidea Fraser MD LAB MICROBIOLOGY - GENERAL O RDERABLES Edited Result - Final [facility] Department [place] [address] from Last 3 Months or Most Recently Relevant to Health Maintenance Insurance [employer] [employer] Care Teams Baker Helper Relationship Specialty Start Date End Date Luther Terrazas MD [address] [facility] [place] [address] PCP - General Emergency Medicine 04/21/21 Orquidea Fraser MD [address] [facility] [id number] [place] [address] Rheumatology 10/20/16
--- OUTSIDE RECORDS SUMMARY | 2024-04-27 16:11 | XMS_ITS | Encounter Summary ---
Author Organization [facility] Address [address] [place] [address] Care Team Providers Care Physician Relations Specialist Name Role Phone Luther Terrazas MD Primary Care Provider + [phone] Leila Blair MD Unavailable [phone] Encounter Details Date Type Department Care Team (Late st Contact Info) Description 01/10/2024 [employer] Message Enc [facility]pecial[facility] - [facility] [address] [facility], [address] [place] [id number] Michael Dukes MD [address] [place] [address] Scheduling surgery Social History Tobacco Use Types Packs/Day Years Used Date Smoking Tobacco: Never Smokeless Tobacco: Never Alcohol Use Standard Drinks/Week Comments Not Currently 0 (1 standard drink = 0.6 oz pur e alcohol) PHQ-2 Answer Date Recorded Patient Health Questionnaire-2 Score 0 08/12/2023 Comments No Sex and Gender Information Value Date Recorded Sex Assigned at Female 03/07/2024 8:32 AM SUPERVISOR DENTURE DEPARTMENT Legal Sex Female 5:13 PM CDT Gender Identity Not on file Sexual Orientation Not on file documented as of this encounter Functional Status * RETIRED Are you deaf or do you have serious difficulty hearing Answer Date of Assessment Author Status Yes 01/08/2020 10:09 PM SUPERVISOR DENTURE DEPARTMENT Acti ve * RETIRED Are you blind or do you have serious difficulty seeing, even when wearing glasses? Answer Date of Assessment Author Status No 01/08/2020 10:09 PM ENMA Acti ve * Do you have serious [...] Brooke RN Active documented in this encounter Plan of Treatment Upcoming Encounters Date Type Department Care Team (Late st Contact Info) Description 05/09/2024 3:40 PM CDT Office Visit [facility] - [facility] [address] [facility], [address] [place] [address] Deepali Antunez APRN [address] [facility] [address] [place] [address] documented as of this encounter Visit Diagnoses Not on filedocumented in this encounter Care Teams Physician Relations Specialist Relationship Specialty Start Date End Date Luther Terrazas MD [address] [place] [address] PCP - General INTERNAL MEDICINE 04/25/20 Leila Blair MD [address] [place] [address] RHEUMATOLOGY 03/07/24 documented as of this encounter
--- OUTSIDE RECORDS SUMMARY | 2024-04-27 16:11 | XMS_ITS | Encounter Summary ---
Author Organization [facility] Address [address] [place] [address] Care Team Providers Care Sheet Metal Former Name Role Phone Luther Terrazas MD Primary Care Provider + [phone] Leila Blair MD Unavailable [phone] Encounter Details Date Type Department Care Team (Late st Contact Info) Description 09/16/2023 [employer] Message Enc [facility] Multispecialty Care - [facility] [address] [facility], [address] [place] [address] Michael Dukes MD [address] [place] [address] Physical therapy Social History Tobacco Use Types Packs/Day Years Used Date Smoking Tobacco: Never Smokeless Tobacco: Never Alcohol Use Standard Drinks/Week Comments Not Currently 0 (1 standard drink = 0.6 oz pur e alcohol) PHQ-2 Answer Date Recorded Patient Health Questionnaire-2 Score 0 08/12/2023 Comments No Sex and Gender Information Value Date Recorded Sex Assigned at Female 03/07/2024 8:32 AM HEALTHCARE RISK CONTROL CONSULTANT Legal Sex Female 5:13 PM CDT Gender Identity Not on file Sexual Orientation Not on file documented as of this encounter Functional Status * RETIRED Are you deaf or do you have serious difficulty hearing Answer Date of Assessment Author Status Yes 01/08/2020 10:09 PM HEALTHCARE RISK CONTROL CONSULTANT Acti ve * RETIRED Are you blind [...] documented in this encounter Progress Notes * Love Stallings LPN - 10/27/2023 2:30 PM CDT Called patient back. Informed her that Dr. TRUONG is completely booked but can place her on the waitlist. She verbally agrees. Pt has been placed. documented in this encounter Plan of Treatment Upcoming Encounters Date Type Department Care Team (Late st Contact Info) Description 05/09/2024 3:40 PM CDT Office Visit [facility] Multispecialty Care - [facility] [address] [facility], [address] [place] [phone] Deepali Antunez, MERON [address] [facility] [address] [place] [address] documented as of this encounter Visit Diagnoses Not on filedocumented in this encounter Care Teams Sheet Metal Former Relationship Specialty Start Date End Date Luther Terrazas MD [address] [place] [address] PCP - General INTERNAL MEDICINE 04/25/20 Leila Blair MD [address] [place] [address] RHEUMATOLOGY 03/07/24 documented as of this encounter
--- OUTSIDE RECORDS SUMMARY | 2024-04-27 16:11 | XMS_ITS | Clinical Summary ---
Author Organization [facility] Address [facility] [place] [address] Care Team Providers Care Mess Attendant Name Role Phone Luther Terrazas MD Primary Care Provider + [phone] Leila Blair MD Unavailable [phone] Allergies Active Allergy Reactions Criticality Noted Date Comments Sulfa Antibiotics Rash Medium 06/21/2017 Tocilizumab Hives Medium 05/18/2018 Medications folic acid 1 MG tablet Take 2 tablets (2 mg total) by mouth daily. 0 Active meclizine 25 MG tablet Take 1 tablet (25 mg total) by mouth 3 (three) times daily as needed for Dizziness. 9 Active sertraline 100 MG tablet Take 1 tablet (100 mg total) by mouth daily. Take total of 150 mg. 0 Active omeprazole 20 MG capsule Take 4 capsules (80 mg total) by mouth daily. Active certolizumab pegol (CIMZIA) 2 X 200 MG injection Inject 2 mLs (400 mg total) into the skin. 4 Active sertraline (ZOLOFT) 50 MG tablet Take 1 tablet (50 mg total) by mouth daily. Take total 150 mg. 5 Active ketoconazole (NIZORAL) 2 % cream Apply topically daily as needed. 4 Active tacrolimus (PROTOPIC) 0.1 % ointment Apply topically nightly. 4 Active calcium carb-cholecalci ferol (CALTRATE 600+D) 600-20 MG-MCG tabletIndicatio ns:S/P cervical spinal fusion Take 1 tablet by mouth 2 (two) times daily. 5 Active HYDROcodone-noel taminophen (NORCO) 5-325 MG tabletIndicatio ns:Acute Pain < 7 Day Supply Take 1-2 tablets by mouth every 6 (six) hours as needed for Pain. Indications: Acute Pain < 7 Day Supply 42 tablet 5 Active senna-docusate (SENOKOT-S) 8.6-50 MG tabletIndicatio ns:S/P cervical spinal fusion Take 1 tablet by mouth 2 (two) times daily as needed. 20 tablet 5 Active vitamin D3, cholecalciferol , 125 mcg capsuleIndicati ons:S/P cervical spinal fusion Take 1 capsule (5,000 Units total) by mouth daily. 5 Active diazePAM (VALIUM) 5 MG tabletIndicatio ns:S/P cervical spinal fusion Take 1 tablet (5 mg total) by mouth every 6 (six) hours as needed (Spasms). 30 tablet 5 Active Active Problems Problem Noted Date Diagnosed Date Degenerative disc disease, cervical 03/23/2024 History of fusion of cervical spine 03/23/2024 Rheumatoid arthritis ([facility]) 0 S/P cervical spinal fusion 01/08/2020 Syrinx of spinal cord ([facility]) 11/15/19 20 Radiculopathy, cervical region 11/15/2019 Foraminal stenosis of cervical region 11/15/2019 Facet arthropathy, cervical 11/15/2019 Spinal stenosis of cervical region 11/15/2019 Resolved Problems Problem Noted Date Diagnosed Date Resolved Date Degenerative disc disease, cervical 01/08/2020 03/23/2024 Cervical spine instability 01/08/2020 0 03/23/2024 Cervical myelopathy ([facility]) 11/15/2019 03/23/2024 Encounters Date Type Department Care Team Description 04/18/2024 Telephone [facility] Physical Therapy [address] [place] [address] Shante Medrano, BUFFET MANAGER Called To Cancel Office Appt. 04/14/2024 Telephone [facility] - [facility] [address], [address] [place] [phone] Michael Dukes MD Question 04/12/2024 3:45 PM [facility] Office Visit [facility] [address] [place], [place] [phone] Leonarda Allen, PT Cerv Pain 04/12/2024 Travel 04/12/2024 [facility] - [address], [address] [place] [phone] Michael Dukes MD Surgery Questions 04/11/2024 MyChart Message Enc [facility] - [address], [address] [place] [phone] Michael Dukes MD Voice 04/10/2024 12:45 PM [facility] Office Visit [facility] [address] [place] [id number] Michael Dukes MD Tolle, Lisa C, PT Cerv Pain 04/10/2024 Travel 04/06/2024 [facility] - [address], [address] [place] [phone] Michael Dukes MD Working 03/30/2024 2:00 PM [facility] Office Visit [facility] - [address], [address] [place] [phone] Michael Dukes MD Post Operative (1st post-op) 03/30/2024 Travel 03/28/2024 Orders Only [facility] [address], [address] [place] [address] Michael Dukes MD 03/22/2024 2:23 PM [facility] - 03/22/2024 5:52 PM [facility] Surgery [facility] [place] [address] Michael Dukes MD REMOVAL OF ANTERIOR CERVICAL PLATE, CERVICAL 3-4 ANTERIOR CERVICAL DISCECTOMY AND FUSION, INTERNAL FIXATION WITH ANTERIOR CERVICAL PLATE, ALLOGRAFT, AUTOGRAFT 03/22/2024 11:23 AM [facility] Anesthesia Event [facility] [place] [address] Franci Wheeler MD Jarvis, Brittany L, [employer] SALES REPRESENTATIVE 03/22/2024 9:34 AM [facility] - 03/23/2024 12:24 PM [facility] [address] [place] [address] Michael Dukes MD Discharge Disposition: Home or Self Care (Routine Discharge) 03/22/2024 Scan [facility] Scanned, [facility] 03/22/2024 Travel 03/21/2024 [facility] Scanned, [facility] 03/20/2024 [facility] Scanned, [facility] 03/15/2024 Telephone [facility] - [facility] [address], [address] [place] [address] Michael Dukes MD Prior Authorization (Surgery Date) 03/14/2024 Telephone [facility] [address], [address] [place] [address] Michael Dukes MD Schedule Surgery (Re-schedule ) 03/14/2024 Telephone [facility] - [facility] [address], [address] [place] [address] Michael Dukes MD Prior Authorization ([facility] Approval) 03/14/2024 Telephone [facility] - [facility] [address], [address] [place] [address] Michael Dukes MD Prior Authorization ([facility]) 03/13/2024 Telephone [facility] - [facility] [address], [address] [place] [address] Michael Dukes MD Schedule Surgery (Cancelled) 03/10/2024 Telephone [facility] - [facility] [address], [address] [place] [phone] Michael Dukes MD Information (Surgery time change) 03/08/2024 MyChart Message Enc [facility] - [facility] [address], [address] [place] [phone] Michael Dukes MD To Tammi 03/07/2024 8:33 AM [facility] - 03/07/2024 9:40 AM [facility] Hospital Encounter [facility] Pre-Admission Testing [address] [facility] [address] Michael Dukes MD Discharge Disposition: Home or Self Care (Routine Discharge) 03/07/2024 Travel 02/29/2024 Telephone [facility] - [address], [address] [place] [phone] Michael Dukes MD Reschedule 02/23/2024 Telephone [facility] - [address], [address] [place] [phone] Michael Dukes MD Pre-op Surgery/Cosmetic (Education/instructi ons) 02/23/2024 Telephone [facility] - [address], [address] [place] [phone] Michael Dukes MD Prior Authorization 02/18/2024 [facility] - [address], [address] [place] [phone] Deepali Antunez APRN Information 02/18/2024 [facility] - [address], [address] [place] [phone] Michael Dukes MD Information (New Ins Info needed) from Last 3 Months Family History Medical History Relation Comments Hypertension Father Relation Status Comments Father Alive Mother Alive Social History Tobacco Use Types Packs/Day Years Used Date Smoking Tobacco: Never Smokeless Tobacco: Never Alcohol Use Standard Drinks/Week Comments Not Currently 0 (1 standard drink = 0.6 oz pur e alcohol) B1300 Health Literacy Answer Date Recor ded How often do you need to hav e someone help you when you read instructions, pamphlets, or other written material from your doctor or pharmacy? Never 03/22/2024 [facility] Utilities Answer Date Recorded In the past 12 months has [facility] [employer], or [employer] threatened to shut off services in your home? No 03/22/2024 Humiliation, Afraid, Rape, and Kick questionnair e Answer Date Recorded Within the last year, have y ou been afraid of your partner or ex-partner? No 03/22/2024 Within the last year, have y ou been humiliated or emotionally abused in other ways by your partner or ex-partner? No Within the last year, have y ou been kicked, hit, slapped, or otherwise physically hurt by your partner or ex-partner? No 03/22/2024 Within the last year, have y ou been raped or forced to have any kind of sexual activity by your partner or ex-partner? No 03/22/2024 Overall Financial Resource Strain (CARDIA) Answe r Date Recorded How hard is it for you to pa y for the very basics like food, housing, medical care, and heating? Not hard at all 03/22/2024 PHQ-2 Answer Date Recorded Patient Health Questionnaire-2 Score 0 08/12/2023 [facility] - Occupational Stress Questionnaire Answer Date Recorded Do you feel stress - tense, restless, nervous, or anxious, or unable to sleep at night because your mind is troubled all the time - these days? Not at all 03/22/2024 Exercise Vital Sign Answer Date Recorde d On average, how many days pe r week do you engage in moderate to strenuous exercise (like a brisk walk)? 0 days 03/22/2024 On average, how many minutes do you engage in exercise at this level? 0 min 03/22/2024 Hunger Vital Sign Answer Date Recorded Within the past 12 months, y ou worried that your food would run out before you got the money to buy more. Never true 03/22/19 25 Within the past 12 months, t he food you bought just didn't last and you didn't have money to get more. Never true 03/22/2024 PRAPARE - Transportation Answer Date Re corded In the past 12 months, has l ack of transportation kept you from medical appointments or from getting medications? No 06/2024 In the past 12 months, has l ack of transportation kept you from meetings, work, or from getting things needed for daily living? No 03/22/2024 Housing Stability Vital Sign Answer Reed e Recorded In the last 12 months, was t here a time when you were not able to pay the mortgage or rent on time? No 03/22/2024 In the past 12 months, how m any times have you moved where you were living? 0 03/22/2024 At any time in the past 12 m [facility], were you homeless or living in a fpc (including now)? No 03/22/2024 Comments No Sex and Gender Information Value Date Recorded Sex Assigned at Female 03/07/2024 8:32 AM [facility] Legal Sex Female 5:13 PM CDT Gender Identity Not on file Sexual Orientation Not on file Last Filed Vital Signs Vital Sign Reading Time Taken Comments Blood Pressure 132/82 03/30/2024 1:59 PM [facility] Pulse 90 03/30/2024 1:59 PM [facility] Temperature 36.8 C (98.3 F) 03/30/2024 1:59 PM [facility]OT Respiratory Rate 18 03/23/2024 9:14 AM [facility]OT Oxygen Saturation 100% 03/30/2024 1:59 PM [facility] Inhaled Oxygen Concentration - - Weight 61.2 kg (135 lb) 03/30/2024 1:59 PM [facility] Height 167.6 cm (5' 6 ) 03/30/2024 1:59 PM [facility] Body Mass Index 21.79 03/30/2024 1:59 PM [facility] Plan of Treatment Upcoming Encounters Date Type Department Care Team (Late st Contact Info) Description 05/09/2024 3:40 PM CDT Office Visit [facility] - [facility] [address], [address] [place] [phone] Deepali Antunez APRN [address] [facility] [address] [place] [phone] Health Maintenance Due Date Last Done Comments Colorectal Cancer Screening Colonoscopy (10 Years) 1976 Annual Physical 02/11/1979 Hepatitis C 02/11/1994 DTaP, Tdap and Td Vaccines (1 - Tdap) 02/11/1995 Hepatitis B Vaccines (1 of 3 - 19+ 3-dose series) 02/11/1995 Pneumococcal Vaccine: Pediatrics (0 to 5 Years) and At-Risk Patients (6 to 64 Years) (2 of 2 - PCV) 02/17/2005 02/18/2004 Mammogram Screening 2016 09/04/2013 COVID-19 Vaccine (3 - Pfizer risk series) 06/14/2020 05/17/2020, 04/26/2020 Influenza Adult (#1) 2023 12/16/2022, 11/29/2019, 01/03/2019, Additional history exists PHQ-2 (Physician [place]) 02/16/2024 08/12/2023 Meningococcal B Vaccine Aged Out No l onger eligible based on patient's age to complete this topic Meningococcal Vaccine Aged Out No rebecca aniya eligible based on patient's age to complete this topic RSV Immunizations Under 20 Months Aged Out No longer eligible based on patient's age to complete this topic Goals Goal Patient Goal Type Associated Problems Recent Progress Patient-Stated? Author Family - family caregiver with be involved in care transitions and discharge planning Lifestyle No Jamal Washburn, RN Medical Devices Implanted Type Area Clay Modeler Device Identifier Shelf Expiration Date Model / Serial / Lot Putty [place] Matrix Dbm/Dbf Bone 1cc - [id number] Implanted:Qty: 1 on 03/22/2024 by Michael Dukes MD at [facility] Bone N/A: Spine Cervical [employer] [id number] 11/24/2025 [id number] / [id number] 1 / [employer] Mmn Endoskeleton Interbody System Implanted:Qty: 1 on 03/22/2024 by Michael Dukes MD at [facility] Cage N/A: Spine Cervical [employer] 12/22/2028 [id number] / / [id number] Plate Holding Pin Implanted:Qty: 1 on 03/22/2024 by Michael Dukes MD at [facility] Plate N/A: Spine Cervical [id number] / / 23mm Elite Plate Implanted:Qty: 1 on 03/22/2024 by Michael Dukes MD at [facility] Plate N/A: Spine Cervical [employer] [id number] / / 4.0x15mm Screws Implanted:Qty: 2 on 03/22/2024 by Michael Dukes MD at [facility] Screw N/A: Spine Cervical [employer] [id number] / / 4.5 X 15 Mm Screws Implanted:Qty: 2 on 03/22/2024 by Michael Dukes MD at [facility] Screw N/A: Spine Cervical [employer] [id number] / / [id number] Viable Bone Matrix- Spine Implanted:Qty: 1 on 01/08/2020 by Michael Dukes MD at [facility] N/A: Spine Cervical 06/13/2021 [id number] / / [id number] Graft Infuse Bone Xsmall - [id number] Implanted:Qty: 1 on 01/08/2020 by Michael Dukes MD at [facility] N/A: Spine Cervical [employer] 03/17/2020 [id number] / / [id number] [place] Interbody System Cervical Interbody Implanted:Qty: 1 on 01/08/2020 by Michael Dukes MD at [facility] N/A: Spine Cervical 05/31/2024 [id number] / / [id number] Description:Clay Modeler: K2 M Bio4 Viable Bone Matrix- Spine Implanted:Qty: 1 on 01/08/2020 by Michael Dukes MD at [facility] N/A: Spine Cervical 06/13/2021 [id number] / / [id number] Description:Unit Number 2 [id number] [place] Interbody System Cervical Interbody Implanted:Qty: 1 on 01/08/2020 by Michael Dukes MD at [facility] N/A: Spine Cervical 05/31/2024 [id number] / / [id number] 16mm Self Tapping Screw Implanted:Qty: 6 on 01/08/2020 by Michael Dukes MD at [facility] Explanted:Qty: 2 on 03/22/2024 by Michael Dukes MD at [facility] N/A: Spine Cervical AWA SPINE - DIV AWA ROWENA [id number] / / Explanted Type Area Clay Modeler Device Identifier Shelf Expiration Date Model / Serial / Lot Distration Pin 12mm - [id number] Explanted:Qty: 1 on 01/08/2020 at [facility] Pin N/A: Spine Cervical [employer] DP-12-TB / / Distration Pin 12mm - [id number] Explanted:Qty: 1 on 01/08/2020 at [facility] Pin N/A: Spine Cervical [employer] DP-12-TB / / 42mm Plate- [id number] Implanted:Qty: 1 on 01/08/2020 by Michael Dukes MD at [facility] Explanted:Qty: 1 on 03/22/2024 by Michael Dukes MD at [facility] N/A: Spine Cervical AWA SPINE - DIV AWA ROWENA [id number] / / Description:1 level of plate explanted at C4, rest of plate still implanted and intact Procedures Procedure Name Priority Date/Time Associated Diagnosis Comments XR CERV SPINE AP+LAT 2V BOOKER 03/23/2024 9:55 AM [facility] SURG XR CERV SPINE 1V Routine 03/22/2024 12:59 PM [facility] FUSION SPINAL ANTERIOR CERVICAL 1 LEVEL 03/22/2024 11:23 AM [facility] RADICULOPATHY, CERVICAL REGION, SPINAL STENOSIS OF CERVICAL REGION M54.12, M48.02 Case Notes SCHED BY FAX 02/07/2024 [facility] PRETEST 03/06 @ 10AMDR REQUESTING 2 HOURS TYPE & SCREEN Routine 03/22/2024 10:28 AM [facility] TYPE & SCREEN Routine 03/07/2024 9:14 AM [facility]OT Radiculopathy, cervical region Spinal stenosis of cervical region PARTIAL THROMBOPLASTIN TIME,PTT Routine 03/07/2024 9:14 AM [facility] Radiculopathy, cervical region Spinal stenosis of cervical region PROTHROMBIN TIME, VENOUS Routine 03/07/2024 9:14 AM [facility] Radiculopathy, cervical region Spinal stenosis of cervical region NICOTINE SCREEN URINE Routine 03/07/2024 9:14 AM [facility] Radiculopathy, cervical region Spinal stenosis of cervical region HC URINALYSIS AUTO W/O MICRO Routine 03/07/2024 9:14 AM [facility]OT Radiculopathy, cervical region Spinal stenosis of cervical region BASIC METABOLIC PANEL Routine 03/07/2024 9:14 AM [facility] Radiculopathy, cervical region Spinal stenosis of cervical region CBC W/DIFF AUTOMATED Routine 03/07/2024 9:14 AM [facility]OT Radiculopathy, cervical region Spinal stenosis of cervical region MRSA SCREENING Routine 03/07/2024 9:13 AM [facility]OT Radiculopathy, cervical region Spinal stenosis of cervical region URINE BACTERIA CULTURE Routine 03/07/2024 9:13 AM [facility]OT Radiculopathy, cervical region Spinal stenosis of cervical region from Last 3 Months Results * XR CERV SPINE AP+LAT 2V (03/23/2024 9:55 AM [facility] PILOT) Anatomical Region Laterality Modality Spine Radiographic Araceli ging 03/23/2024 11:1 1 AM [facility]OT Impressions 03/23/2024 11:13 AM [facility]OT ===== Impression: ===== 1. Postsurgical changes of new C3-C4 ACDF and interbody fusion. 2. Stable changes of interbody fusion device across C4-C5 and C5-C6 ACDF interbody fusion. 3. No acute finding Ordered By: DEEPALI ANTUNEZ Interpreted By: Sydney Collier MD, 03/23/2024 11:11 AM Narrative 03/23/2024 11:13 AM [facility]OT [place] [address] Examination: Cervical spine x-rays, AP and Lateral Exam Date/Time: 03/23/2024 9:46 AM Reason For Exam: 49 female status post cervical fusion. Postprocedure radiographic assessment Comparison: MRI cervical spine 09/03/2023; CT cervical spine myelogram 06/29/2023 Technique: AP and Lateral views of the cervical spine were obtained Findings: There is interval removal of the C4-C5 anterior cervical plate and screws. There are 2 new changes of C3-C4 ACDF with the placement of anterior plate and screws and interbody fusion cage. The C4-C5 the intervertebral cages remains in place. Changes of the C5-C6 ACDF with anterior plate and screws and interbody cage are stable. All hardware appears appropriately positioned and intact. No failure or loosening seen. There is a surgical drain projecting in the right anterior prevertebral soft tissues at the C4-C5 level. Minimal cervical spine straightening. No subluxation or listhesis seen. Vertebral body heights are maintained. Procedure Note Sydney Collier MD - 03/23/[address] [address] Examination: Cervical spine x-rays, AP and Lateral Exam Date/Time: 03/23/2024 9:46 AM Reason For Exam: 49 female status post cervical fusion. Postprocedureradiographic assessment Comparison: MRI cervical spine 09/03/2023; CT cervical spine myelogram06/29/2023 Technique: AP and Lateral views of the cervical spine were obtained Findings: There is interval removal of the C4-C5 anterior cervical plate and screws.There are 2 new changes of C3-C4 ACDF with the placement of anterior plateand screws and interbody fusion cage. The C4-C5 the intervertebral cages remains in place. Changes of the C5-C6ACDF with anterior plate and screws and interbody cage are stable. Allhardware appears appropriately positioned and intact. No failure orloosening seen. There is a surgical drain projecting in the right anterior prevertebralsoft tissues at the C4-C5 level. Minimal cervical spine straightening. No subluxation or listhesis seen.Vertebral body heights are maintained. ===== Impression: ===== 1. Postsurgical changes of new C3-C4 ACDF and interbody fusion. 2. Stable changes of interbody fusion device across C4-C5 and C5-C6 ACDFinterbody fusion. 3. No acute finding Ordered By: DEEPALI ANTUNEZ Interpreted By: Sydney Collier MD, 03/23/2024 11:11 AM Deepali Antunez FIBRE COMPOSITE TECHNICIAN GENERAL IMAGING Final Resu lt * SURG XR CERV SPINE 1V (03/22/2024 12:59 PM [facility]) Anatomical Region Laterality Modality Spine Radiographic Araceli ging 03/22/2024 1:34 PM [facility] PILOT Impressions 03/22/2024 1:34 PM [facility] P[facility]OT Impression: No radiologic interpretation will be issued. The report and documentation of this exam will reside in the patient's permanent medical record and in the attending physician's procedure note. Ordered By: MICHAEL DUKES Interpreted By: Ld Gimenez MD, 03/22/2024 1:34 PM Narrative 03/22/2024 1:34 PM [facility] P[facility]OT [facility] [address] [place], [place] [address] FLUOROSCOPY CONTROL ONLY Procedure Note Ld Gimenez MD - 03/22/2024 [facility] [address] [place], [place] [address] FLUOROSCOPY CONTROL ONLY Impression: No radiologic interpretation will be issued. The report and documentationof this exam will reside in the patient's permanent medical record and inthe attending physician's procedure note. Ordered By: MICHAEL DUKES Interpreted By: Ld Gimenez MD, 03/22/2024 1:34 PM Michael Dukes MD IMAGES ONLY Final Resul t * TYPE & SCREEN (03/22/2024 10:28 AM [facility] PILOT) Only the most recent of2 resultswithin the time period is included. ABO/RH A POSITIVE 03/22/2024 11:15 AM [facility] PILOT [facility] ANTIBODY SCREEN NEGATIVE 03/22/2024 11:15 AM [facility] PILOT [facility] SAMPLE EXPIRATION 03/25/2024,2 359 03/22/2024 11:15 AM [facility] P[facility]OT [facility] 03/22/2024 10:2 8 AM [facility] PILOT us Michael Dukes MD BLOOD BANK TEST ORDERABLES Final Result [facility] [address] [place] [address], [place] [phone] * NICOTINE SCREEN URINE (03/07/2024 9:14 AM [facility]IP [facility] PILOT) NICOTINE (U) <2 ng/mL 03/11/2024 1:02 AM [facility] PILOT [facility] COTININE (U) <2 ng/mL 03/11/2024 1:02 AM [facility] Comment: Reference Range: Nicotine, Urine Smokers: 200-700 ng/mL Nonsmokers: < or = 17 ng/mL Cotinine, Urine Smokers: 300-1300 ng/mL Nonsmokers: < or = 20 ng/mL Individuals exposed to second-hand or passive tobacco smoke may demonstrate concentrations of nicotine and cotinine greater than those indicated for non-smokers. This test was developed and its analytical performance characteristics have been determined by [employer] [place], [place]. It has not been cleared or approved by the U.S. Food and Drug Administration. This assay has been validated pursuant to the CLIA regulations and is used for clinical purposes. Test Performed by [facility], [employer] [facility], [address] [place] [address] Patrick Blanchard M.D., Ph.D., Director of Laboratories , CLIA [id number] URINE SPECIMEN / Unknown 03/07/2024 9:14 AM [facility]OT Michael Dukes MD URINE ORDERABLES Final Resu lt [facility] [address] [address], * URINALYSIS (03/07/2024 9:14 AM [facility]IL[facility]) SPECIMEN TYPE URINE CLEAN CATCH 03/07/2024 9:12 AM [facility] COLOR (U) LIGHT YELLOW 03/07/2024 9:37 AM [facility] TRANSPARENCY CLEAR 03/07/2024 9:37 AM [facility] SPECIFIC GRAVITY (U) 1.008 1.001 - 1.030 03/07/2024 9:37 AM [facility] U PH 5.0 5.0 - 9.0 03/07/2024 9:37 AM [facility] LEUKOCYTES (U) NEGATIVE NEGATIVE 03/07/2024 9:37 AM [facility] NITRITES NEGATIVE NEGATIVE 03/07/2024 9:37 AM [facility] PROTEIN RANDOM (U) NEGATIVE <30 MG/DL 03/07/2024 9:37 AM [facility] GLUCOSE (U) NORMAL NORMAL MG/DL 03/07/2024 9:37 AM [facility] KETONES MG/DL (U) NEGATIVE NEGATIVE MG/DL 03/07/2024 9:37 AM [facility] UROBILINOGEN NORMAL NORMAL MG/DL 03/07/2024 9:37 AM [facility] BILIRUBIN (U) NEGATIVE NEGATIVE MG/DL 03/07/2024 9:37 AM [facility] BLOOD (U) NEGATIVE NEGATIVE 03/07/2024 9:37 AM [facility] URINE SPECIMEN OBTAINED BY CLEAN CATCH PROCEDURE / Unknown 03/07/2024 9:14 AM [facility] Michael Dukes MD URINE ORDERABLES Final Resu lt [facility] [address] [place] [address], [place] [phone] * PTT, PARTIAL THROMBOPLASTIN TIME (03/07/2024 9:14 AM [facility]) PTT 30.5 25.1 - 36.5 SEC 03/07/2024 10:01 AM [facility] 03/07/2024 9:14 AM [facility]OT us Michael Dukes MD LABORATORY Final Resul t [facility] [address] [place] [address], [place] [phone] * PROTIME/INR, VENOUS (03/07/2024 9:14 AM [facility]ILOT) PROTIME 10.4 10.2 - 12.9 SEC 03/07/2024 10:01 AM [facility] INR 0.9 03/07/2024 10:01 AM [facility] Comment: Recommended INR Therapeutic Goals: 2.0-3.0 Routine Therapy 2.5-3.5 Mechanical Prosthetic Valves (High Risk) 03/07/2024 9:14 AM [facility] us Michael Dukes MD LABORATORY Final Resul t Performing Organization Address City/[facility]/ZIP Co de Phone Number [facility] [address] [place] [address], * (ABNORMAL) BASIC METABOLIC PANEL (03/07/2024 9:14 AM [facility]) GLUCOSE 101(H) 70 - 99 MG/DL 03/07/2024 9:56 AM [facility] BUN 13 7 - 18 MG/DL 03/07/2024 9:56 AM [facility] CREATININE S/P/B 0.62 0.55 - 1.02 MG/DL 03/07/2024 9:56 AM [facility] SODIUM S/P/B 139 136 - 145 MMOL/L 03/07/2024 9:56 AM [facility] POTASSIUM S/P/B 3.6 3.5 - 5.1 MMOL/L 03/07/2024 9:56 AM [facility] CHLORIDE S/P/B 107 97 - 115 MMOL/L 03/07/2024 9:56 AM [facility] CO2 27.5 21 - 32 MMOL/L 03/07/2024 9:56 AM [facility] CALCIUM S/P/B 8.8 8.5 - 10.1 MG/DL 03/07/2024 9:56 AM [facility] ANION GAP 4.5 2 - 10 MMOL/L 03/07/2024 9:56 AM [facility] BUN CREATININE RATIO 20.9 6 - 26 03/07/2024 9:56 AM [facility] GFR ESTIMATE >90 >90 ML/MIN/1.7 3 M2 03/07/2024 9:56 AM [facility] Comment: NOTE: eGFR is not calculated for patients <18 years of age or gender unknown. This is an estimated GFR calculation using the new CKD EPI creatinine equation without race and so does not require a correction factor for race. This estimated GFR should not be used for calculating drug doses. 03/07/2024 9:14 AM [facility] P[facility]OT us Michael Dukes MD LABORATORY Final Resul t [facility] [address] [place] [address], * (ABNORMAL) CBC W/DIFF AUTOMATED (03/07/2024 9:14 AM [facility]) WBC 6.29 4.5 - 11.0 x10'3/uL 03/07/2024 9:32 AM [facility] RBC 3.85(L) 4.20 - 5.40 x10'6/uL 03/07/2024 9:32 AM [facility] HGB 12.1 12.0 - 16.0 G/DL 03/07/2024 9:32 AM [facility] HCT 36.5(L) 38.0 - 48.0 % 03/07/2024 9:32 AM [facility] MCV 94.8 81.0 - 99.0 FL 03/07/2024 9:32 AM [facility] MCH 31.4(H) 27.0 - 31.0 PG 03/07/2024 9:32 AM [facility] MCHC 33.2 32.0 - 36.0 G/DL 03/07/2024 9:32 AM [facility] RDW 13.6 11.5 - 14.5 % 03/07/2024 9:32 AM [facility] PLT 286 130 - 400 x10'3/uL 03/07/2024 9:32 AM [facility] MPV 9.3 9.3 - 12.2 FL 03/07/2024 9:32 AM [facility] DIFFERENTIAL TYPE AUTOMATED DIFFERENTIAL 03/07/2024 9:32 AM [facility] NEUTROPHILS % 44.9 % 03/07/2024 9:32 AM [facility] LYMPHOCYTES % 45.3 % 03/07/2024 9:32 AM [facility] MONOCYTES % 6.7 % 03/07/2024 9:32 AM [facility] EOSINOPHILS 2.2 % 03/07/2024 9:32 AM [facility] BASOPHILS 0.6 % 03/07/2024 9:32 AM [facility] IMMATURE GRANS % 0.3 % 03/07/19 9:32 AM [facility] ABS. NEUTROPHILS 2.82 1.80 - 7.70 x10'3/uL 03/07/2024 9:32 AM [facility] ABS. LYMPHOCYTES 2.85 1.00 - 4.80 x10'3/uL 03/07/2024 9:32 AM [facility] ABS. MONOCYTES 0.42 0.24 - 0.86 x10'3/uL 03/07/2024 9:32 AM [facility] ABS. EOSINOPHILS 0.14 0.04 - 0.36 x10'3/uL 03/07/2024 9:32 AM [facility] ABS. BASOPHILS 0.04 0.01 - 0.08 x10'3/uL 03/07/2024 9:32 AM [facility] ABS. IMMATURE GRANULOCYTES 0.02 0.00 - 0.49 x10'3/uL 03/07/2024 9:32 AM [facility] 03/07/2024 9:14 AM [facility] Michael Dukes MD LABORATORY Final Resul t [facility] [address] [place] [address], * MRSA SCREENING (03/07/2024 9:13 AM [facility]) SPEC DESCRIPTION NASAL 03/07/2024 9:12 AM [facility] SPECIAL REQUESTS NO SPECIAL REQUEST 03/07/2024 9:12 AM [facility] CULTURE RESULT NO METHICILLIN RESISTANT STAPHYLOCOCCUS AUREUS ISOLATED 03/08/2024 7:16 AM [facility] SPECIMEN FROM INTERNAL NOSE / Unknown 03/07/2024 9:13 AM [facility] 03/07/2024 9:14 AM [facility] Michael Dukes MD MICROBIOLOGY - GENERAL DAI MCADAMS Final Result [facility] [address] [place] [address], [place] [phone] * URINE BACTERIA CULTURE (03/07/2024 9:13 AM [facility]) SPEC DESCRIPTION URINE CLEAN CATCH 03/07/2024 9:12 AM [facility] SPECIAL REQUESTS NO SPECIAL REQUEST 03/07/2024 9:12 AM [facility] CULTURE RESULT NO GROWTH 2 DAYS 03/09/2024 7:45 AM [facility] P[facility]OT [facility] URINE SPECIMEN OBTAINED BY CLEAN CATCH PROCEDURE / Unknown 03/07/2024 9:13 AM [facility] P[facility] 03/07/2024 9:14 AM [facility] Michael Dukes MD MICROBIOLOGY - GENERAL DAI MCADAMS Final Result Performing Organization Address City/[facility] Co de Phone Number [facility] [address] [place] [address], [place] [phone] from Last 3 Months Insurance [facility] Advance Directives Documents on File Type Date Recorded Patient Cranberry Sorter Expl anation Legal Documents 12/06/2020 3:15 PM ALLIED SETTLEMENT [id number] DOS Legal Documents 01/12/2020 Office conse nts * Full Code (Latest Code Status on File) Date Activated Date Inactivated Comments 03/22/2024 3:22 PM 03/23/2024 2:34 PM * Full Code Date Activated Date Inactivated Comments 01/08/2020 8:04 PM 01/09/2020 5:46 PM Care Teams Mess Attendant Relationship Specialty Start Date End Date Luther Terrazas MD [address] [facility] [address] [place] [address] PCP - General INTERNAL MEDICINE 04/25/20 Leila Blair MD [address] [facility] [address] [place] [address] RHEUMATOLOGY 03/07/24
--- OUTSIDE RECORDS SUMMARY | 2024-04-27 16:11 | XMS_ITS | Referral Summary ---
Author Organization [facility] Address [address] [facility] [address] [place] [address] Care Team Providers Care Audio Visual Technician Name Role Phone Luther Terrazas MD Primary Care Provider Source Comments [facility],non-owned Affiliates and Associated Physician Practices is amultiple site organization consisting of ambulatory clinics and hospital sitesin [place], [place], [place] and [place]. This disclosure is being madepursuant to the Care Everywhere program and may not contain all information available regarding this patient. Last updated 17.[facility] Allergies Active Allergy Reactions Criticality Noted Date [...] Comments Blood Pressure 108/74 12/26/2020 1:13 PM CONCESSION STAND ATTENDANT Pulse 82 12/26/2020 1:13 PM CONCESSION STAND ATTENDANT Temperature - - Respiratory Rate - - Oxygen Saturation - - Inhaled Oxygen Concentration - - Weight 65.8 kg (145 lb) 12/26/2020 1:13 PM CONCESSION STAND ATTENDANT Height 167.6 cm (5' 6 ) 12/26/2020 1:13 PM CONCESSION STAND ATTENDANT Body Mass Index 23.4 12/26/2020 1:13 PM CONCESSION STAND ATTENDANT Plan of Treatment Not on file Care Teams Audio Visual Technician Relationship Specialty Start Date End Date Luther Terrazas MD [address] [place] [address] 2 [place] [address] PCP - General 01/08/21
--- OUTSIDE RECORDS SUMMARY | 2024-04-27 16:11 | XMS_ITS | Patient Health Summary ---
Author Organization [facility] Address [address] [facility] [place] [address] Care Team Providers Care Hot Plate Press Operator Name Role Phone Luther Terrazas MD Primary Care Provider [phone] Note from [facility],non-owned Affiliates and Associated Physician Practices is amultiple site organization consisting of ambulatory clinics and hospital sitesin [place], [place], [place] and [place]. This disclosure is being madepursuant to the Care Everywhere program and may not contain all information available regarding this patient. Last updated 17.[facility] Allergies * Methocarbamol(Urticaria) -Medium Criticality * Sulfa Drugs(Rash) -Medium Criticality * Tocilizumab(Urticaria,Anaphylaxis) -High Criticality Medications * Be aware that medications may not be up to date on this document. Alwaysverify current medications with the patient. * certolizumab pegol (CIMZIA) injection Inject 200 mg subcutaneously every 28 days * folic acid (FOLVITE) 1 MG tablet Take 1 mg by mouth once daily * acyclovir (ZOVIRAX) 800 MG tablet Take 800 mg by mouth 3 times daily * diazePAM (VALIUM) 5 MG tablet Take 5 mg by mouth 3 times daily as needed * methotrexate 2.5 MG tablet Take 2.5 mg by mouth every 7 days * sertraline (ZOLOFT) 100 MG tablet Take 100 mg by mouth once daily * orphenadrine citrate CR 12hr (NORFLEX) 100 MG tablet Take 100 mg by mouth every 12 hours as needed for Muscle Spasms * traMADol (ULTRAM) 50 MG tablet Take 50 mg by mouth every 6 hours as needed for Pain * SUMAtriptan (IMITREX) 50 MG tablet(Started 05/15/2021) Take 1 tab at the onset of migraine, may repeat x 1 dose after 2 hours if needed. Not to exceed more than 2 tabs in 24 hours. 3 refills by 05/15/2022 * rizatriptan (MAXALT) 10 MG tablet(Started 05/29/2021) Take 1 tab at the onset of migraine, may repeat x 1 dose after 2 hours if needed. Not to exceed more than 2 tabs in 24 hours. 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 (AFLURIA, FLUZONE TRIVALENT; 6MO+) (IIV3)(Given 12/19/2014, 11/14/2013) * INFLUENZA VACCINE(Given 12/21/2016) * INFLUENZA VACCINE, QUADR. (AFLURIA, FLUZONE QUADRIVALENT; 6MO+) (IIV4)(Given 11/18/2010) * INFLUENZA VACCINE, QUADR. (FLUZONE; FLULAVAL; FLUARIX; AFLURIA QUADRIVALENT; 6MO+), 0.5 ML (IIV4)(Given 11/29/2019, 01/03/2019, 12/22/2017) * PNEUMOCOCCAL PPSV23(Given 02/18/2004) Social History Tobacco Use Types Packs/Day Years [...] Comments Blood Pressure 108/74 12/26/2020 1:13 PM MIXING PLANT OPERATOR Pulse 82 12/26/2020 1:13 PM MIXING PLANT OPERATOR Temperature - - Respiratory Rate - - Oxygen Saturation - - Inhaled Oxygen Concentration - - Weight 65.8 kg (145 lb) 12/26/2020 1:13 PM MIXING PLANT OPERATOR Height 167.6 cm (5' 6 ) 12/26/2020 1:13 PM MIXING PLANT OPERATOR Body Mass Index 23.4 12/26/2020 1:13 PM MIXING PLANT OPERATOR Care Teams Hot Plate Press Operator Relationship Specialty [place] [address] [place] [id number] PCP - General 01/08/21
--- OUTSIDE RECORDS SUMMARY | 2024-04-27 16:11 | XMS_ITS | Encounter Summary ---
Author Organization [facility] Address [address] [place] [address] Care Team Providers Care Service Liaison Representative Name Role Phone Luther Terrazas MD Primary Care Provider [phone] Leila Blair MD Unavailable [phone] Encounter Details Date Type Department Care Team (Late st Contact Info) Description 08/24/2023 Pinstant Karmat Message Enc [facility] Multispecialty Care - [facility] [address] [facility], [address] [place] [address] Michael Dukes MD [address] [place] [address] MRI Social History Tobacco Use Types Packs/Day Years Used Date Smoking Tobacco: Never Smokeless Tobacco: Never Alcohol Use Standard Drinks/Week Comments Not Currently 0 (1 standard drink = 0.6 oz pur e alcohol) PHQ-2 Answer Date Recorded Patient Health Questionnaire-2 Score 0 08/12/2023 Comments No Sex and Gender Information Value Date Recorded Sex Assigned at Female 03/07/2024 8:32 AM CHASSIS INSPECTOR Legal Sex Female 5:13 PM CDT Gender Identity Not on file Sexual Orientation Not on file documented as of this encounter Functional Status * RETIRED Are you deaf or do you have serious difficulty hearing Answer Date of Assessment Author Status Yes 01/08/2020 10:09 PM CHASSIS INSPECTOR Acti ve * RETIRED Are you blind [...] Progress Notes * Amanda Emmanuel MA - 08/30/2023 7:45 AM CDT Forwarding to AA * Amanda Emmanuel MA - 08/25/2023 8:52 AM CDT Forwarding to Deepali--just wanting to know if you want to change status of current orders to get patient in sooner? Let me know documented in this encounter Plan of Treatment Upcoming Encounters Date Type Department Care Team (Late st Contact Info) Description 05/09/2024 3:40 PM CDT Office Visit [facility] Multispecialty Care - [facility] [address] [facility], [address] [place] [address] Deepali Antunez APRN [address] [facility] [address] [place] [address] documented as of this encounter Visit Diagnoses Not on filedocumented in this encounter Care Teams Service Liaison Representative Relationship Specialty Start Date End Date Luther Terrazas MD [address] [facility] [address] [place] [address] PCP - General INTERNAL MEDICINE 04/25/20 Leila Blair MD [address] [facility] [address] [place] [address] RHEUMATOLOGY 03/07/24 documented as of this encounter
== END 2024-04-27 14:21 | disposition home or self-care (01) ==
PROVIDERS: PCP Emergency Medicine; Visit Provider Emergency Medicine
DX: R47.81 Slurred speech (principal)
CPT/HCPCS: 70496; 70498; Q9967